=== PATIENT | female | born 1970 | race African-American/Black ===

== ENCOUNTER 2021-02-27 07:05 | Day surgery (SDC) | payer OTHER ==
[2021-02-24 15:50] VITALS: BMI 34.6
[2021-02-27] MEDS ORDERED: PROPOFOL 20 ML ONE ×3 (08:20)
[2021-02-27 09:13] VITALS: TEMP 98
[2021-02-27 12:59] VITALS: BP 115/67; PULSE 78
== END 2021-02-27 11:00 | disposition home or self-care (01) ==
LOC: FASU-ENDO 07:05
PROVIDERS: ATTEND Internal Medicine Gastroenterology
PROC: 0DB98ZX Excision of Duodenum, Via Natural or Artificial Opening Endoscopic, Diagnostic (ICD-10-PCS; 2021-02-27)
PROC: 0DB78ZX Excision of Stomach, Pylorus, Via Natural or Artificial Opening Endoscopic, Diagnostic (ICD-10-PCS; 2021-02-27)
PROC: 0DJD8ZZ Inspection of Lower Intestinal Tract, Via Natural or Artificial Opening Endoscopic (ICD-10-PCS; principal; 2021-02-27 08:23)
DX: Z12.11 Encounter for screening for malignant neoplasm of colon (principal); K57.30 Diverticulosis of large intestine without perforation or abscess without bleeding; K29.70 Gastritis, unspecified, without bleeding; B96.81 Helicobacter pylori [H. pylori] as the cause of diseases classified elsewhere; K44.9 Diaphragmatic hernia without obstruction or gangrene; R12 Heartburn
CPT/HCPCS: 43239; G0121; 84703; 88305-TC; 88342-TC